=== PATIENT | female | born 1960 | race Caucasian/White ===

== ENCOUNTER 2017-05-14 20:35 | Emergency (ER) | payer BC | END 2017-05-14 21:35 | disposition left against medical advice (07) | LOC: ERS 20:35 | DX: Z53.21 Procedure and treatment not carried out due to patient leaving prior to being seen by health care provider (principal) ==

== ENCOUNTER 2019-06-29 15:10 | Outpatient (CLI) | payer OTHER ==
--- NOTE | 2019-06-29 15:36 | RAD ---
LUMBAR SPINE SERIES TWO VIEWS: 06/29/19 HISTORY: Intermittent low back pain. COMPARISON: A 03/03/07 study. Vertebral bodies are normal in height. There has been progression of degenerative change with increas ed sclerosis along the superior end plate of L3. Some very mild disc narrowing at this level. More pr onounced disc narrowing and vacuum disc phenomenon at L5-S1. Degenerative facet changes are also pres ent. IMPRESSION: Arthritic changes of the spine. POS: [facility]
== END 2019-06-29 15:11 | disposition home or self-care (01) ==
LOC: BICRAD 15:10
PROVIDERS: ATTEND Internal Medicine
DX: Z02.71 Encounter for disability determination (principal)
CPT/HCPCS: 72100

== ENCOUNTER 2020-04-28 19:01 | Emergency (ER) | payer BC, SELFPAY ==
[2020-04-28 19:51] LABS: Bilirubin Negative (Negative); Blood, Urine Negative (Negative); Clarity Clear (Clear); Glucose, Urine (Dipstick) Greater than 1000 mg/dL (Negative); Ketone, Urine Negative (Negative); Leukocyte Negative Leu/uL (Negative); Nitrite Negative (Negative); Protein, Urine (Dipstick) Negative (Neg-Trace); Specific Gravity, Urine 1.035 (1.002-1.036); Urobilinogen Normal mg/dL (Less than 2)
[2020-04-28] MEDS ORDERED: Insulin Regular 300 UNITS/3 ML VIAL ONE (20:03)
[2020-04-28 20:29] LABS: #Eosinphils 0.1 thou/uL (0.0-0.7); #Lymphocytes 2.2 thou/uL (1.20-3.40); #Monocytes 0.3 thou/uL (0.11-0.59); #Neutrophils 3.4 thou/uL (1.40-6.50); %Basophils 0.5 % (0.0-1.0); %Eosinophils 1.9 % (0.0-10.0); %Neutrophils 56.7 % (42.0-75.0); Hemoglobin 15.1 g/dL (12.0-16.0); Mean Corpuscular Hemoglobin 30.1 pg (27.0-31.0); Mean Corpuscular Volume 86.2 fL (78.0-98.0); Mean Platelet Volume 8.5 fL (7.4-10.4); Platelet Count 166 thou/uL (130-400); RBC Distribution Width 12.3 % (11.5-14.5); Red Blood Cell (RBC) Count 5.02 mill/uL (4.20-5.40)
[2020-04-28 20:50] LABS: ALT (SGPT) 26 U/L (8-55); AST (SGOT) 36 U/L (5-34); Albumin 4.3 g/dL (3.4-4.8); Alkaline Phosphatase 99 U/L (40-110); Anion Gap 15 mmol/L (10-20); BUN (Urea Nitrogen) 18 mg/dL (9.8-20.1); Calc. Creatinine Clearance 0 mL/min (70-130); Calcium 9.5 mg/dL (7.8-10.44); Carbon Dioxide 24 mmol/L (23-31); Chloride 95 mmol/L (98-107); Estimated GFR-MDRD 49; Globulin 2.3 g/dL (2.4-3.5); Glucose 469 mg/dL (80-115); Potassium 3.9 mmol/L (3.5-5.1); Protein, Total 6.6 g/dL (6.0-8.3); Sodium 130 mmol/L (136-145)
== END 2020-04-28 21:19 | disposition home or self-care (01) ==
LOC: ERS 19:01
DX: E11.65 Type 2 diabetes mellitus with hyperglycemia (principal); E78.5 Hyperlipidemia, unspecified; I10 Essential (primary) hypertension; Z79.4 Long term (current) use of insulin
CPT/HCPCS: 36415; 36416; 80053; 81003; 82010; 85025; 96360; J1815

== ENCOUNTER 2020-06-10 00:10 | Emergency (ER) | payer SELFPAY ==
[2020-06-10] MEDS ORDERED: Ketorolac Tromethamine 30 MG/ML VIAL ONE (00:43)
== END 2020-06-10 01:17 | disposition home or self-care (01) ==
LOC: ERS 00:10
DX: M54.32 Sciatica, left side (principal); E11.9 Type 2 diabetes mellitus without complications; E78.5 Hyperlipidemia, unspecified; I10 Essential (primary) hypertension; Z79.4 Long term (current) use of insulin; Z79.899 Other long term (current) drug therapy
CPT/HCPCS: 96372; 99283; J1885

== ENCOUNTER 2020-07-09 06:38 | Emergency (ER) | payer SELFPAY ==
[2020-07-09 08:01] LABS: #Eosinphils 0.1 thou/uL (0.0-0.7); #Lymphocytes 1.2 thou/uL (1.20-3.40); #Monocytes 0.3 thou/uL (0.11-0.59); #Neutrophils 3.1 thou/uL (1.40-6.50); %Basophils 0.7 % (0.0-1.0); %Eosinophils 2.3 % (0.0-10.0); Hemoglobin 14.7 g/dL (12.0-16.0); Mean Corpuscular HGB CONC 35.5 g/dL (32.0-36.0); Mean Corpuscular Volume 87.2 fL (78.0-98.0); Platelet Count 153 thou/uL (130-400); RBC Distribution Width 12.6 % (11.5-14.5); Red Blood Cell (RBC) Count 4.74 mill/uL (4.20-5.40); White Blood Cell (WBC) Count 4.7 thou/uL (4.8-10.8)
[2020-07-09 08:25] LABS: ALT (SGPT) 25 U/L (8-55); AST (SGOT) 37 U/L (5-34); Albumin 4.3 g/dL (3.4-4.8); Alkaline Phosphatase 90 U/L (40-110); Anion Gap 16 mmol/L (10-20); BUN (Urea Nitrogen) 11 mg/dL (9.8-20.1); Bilirubin, Total 0.9 mg/dL (0.2-1.2); Calc. Creatinine Clearance 0 mL/min (70-130); Calcium 9.2 mg/dL (7.8-10.44); Carbon Dioxide 25 mmol/L (23-31); Chloride 100 mmol/L (98-107); Estimated GFR-MDRD 55; Globulin 2.4 g/dL (2.4-3.5); Glucose 475 mg/dL (80-115); Lipase 74 U/L (8-78); Protein, Total 6.7 g/dL (6.0-8.3); Sodium 137 mmol/L (136-145)
[2020-07-09 08:26] LABS: Bilirubin Negative (Negative); Blood, Urine Negative (Negative); Clarity Clear (Clear); Glucose, Urine (Dipstick) Greater than 1000 mg/dL (Negative); Ketone, Urine Negative (Negative); Leukocyte Negative Leu/uL (Negative); Nitrite Negative (Negative); Protein, Urine (Dipstick) Negative (Neg-Trace); Specific Gravity, Urine 1.029 (1.002-1.036); Urobilinogen Normal mg/dL (Less than 2); pH, Urine 6.5 (5.0-9.0)
--- NOTE | 2020-07-09 09:10 | CT ---
CT Abdomen Pelvis W Con History: Abdominal pain Comparison: None. Findings: Lung bases are clear. No pericardial effusion. Prior cholecystectomy. The spleen, pancreas, adrenal glands are unremarkable. No hydroureteronephrosi s. No abnormal renal enhancing mass. Minimal fluid along the left paracolic gutter. Likely left ovarian remnant slightly enlarged measurin g up to 2.5 cm with small volume adjacent fluid. No dilated loops of large or small bowel. No free intraperitoneal gas. No retroperitoneal periaortic adenopathy. No acute osseous abnormality. 2 mm L2-3 retrolisthesis. Impression: 1. Trace left paracolic gutter fluid tracking to the left ovarian remnant which is slightly large for age measuring up to 2.5 cm in size. Nonemergent pelvic ultrasound evaluation recommended. This could also be sequelae of a recent bout of colitis although there is no evidence of acute colitis on today's exam. 2. No hydronephrosis or perinephric stranding. No renal calculi. 3. No other acute inflammatory process within the abdomen or pelvis. 4. Normal appendix.
[2020-07-09] MEDS ORDERED: Ketorolac Tromethamine 30 MG/ML VIAL ONE (09:44)
[2020-07-09] MEDS ORDERED: Acetaminophen 500 MG TAB ONE ×2 (09:44→09:45)
[2020-07-09] MEDS ORDERED: Iopamidol-370 76% 500 ML 1 ML ONE (12:52)
== END 2020-07-09 10:47 | disposition home or self-care (01) ==
LOC: ERS 06:38
DX: N83.8 Other noninflammatory disorders of ovary, fallopian tube and broad ligament (principal); E11.65 Type 2 diabetes mellitus with hyperglycemia; E78.5 Hyperlipidemia, unspecified; I10 Essential (primary) hypertension; F32.9 Major depressive disorder, single episode, unspecified; Z79.4 Long term (current) use of insulin; Z79.899 Other long term (current) drug therapy
CPT/HCPCS: 74177; 80053; 81003; 83690; 84484; 85025; 93005; 96374; J1885; Q9967

== ENCOUNTER 2021-10-13 11:08 | Outpatient (CLI) | payer MEDICARE | END 2021-10-13 11:09 | disposition home or self-care (01) | LOC: BICMAMMO 11:08 | PROVIDERS: ATTEND Family Medicine | DX: Z12.31 Encounter for screening mammogram for malignant neoplasm of breast (principal); Z80.3 Family history of malignant neoplasm of breast | CPT/HCPCS: 77063; 77067 ==

== ENCOUNTER 2022-01-02 07:55 | Outpatient (CLI) | payer MEDICARE ==
[2022-01-02 10:07] LABS: Anion Gap 18 mmol/L (10-20); BUN (Urea Nitrogen) 10 mg/dL (9.8-20.1); Calc. Creatinine Clearance 0 mL/min (70-130); Calcium 9.2 mg/dL (7.8-10.44); Carbon Dioxide 25 mmol/L (23-31); Chloride 105 mmol/L (98-107); Glucose 186 mg/dL (80-115); Potassium 4.1 mmol/L (3.5-5.1); Sodium 144 mmol/L (136-145)
[2022-01-02 18:25] LABS: SARS-CoV-2 PCR by NAA Not Detected (NotDetected)
== END 2022-01-02 07:56 | disposition home or self-care (01) ==
LOC: LABBT 07:55
PROVIDERS: ATTEND Otolaryngology Plastic Surgery within the Head & Neck
DX: Z01.818 Encounter for other preprocedural examination (principal); H61.90 Disorder of external ear, unspecified, unspecified ear; L81.9 Disorder of pigmentation, unspecified; Z20.822 Contact with and (suspected) exposure to COVID-19
CPT/HCPCS: 80048; 85014; 93005; U0003; U0005; 93010

== ENCOUNTER 2022-01-07 08:08 | Day surgery (SDC) | payer MEDICARE ==
[2022-01-05 12:26] VITALS: BMI 25.4
[2022-01-07] MEDS ORDERED: Lidocaine 1% w/Epinephrine 1:100K 20 ML VIAL ONE (10:21)
[2022-01-07] MEDS ORDERED: fentaNYL Citrate/PF 100 MCG/2 ML SYRINGE ONE ×2 (10:28→11:58)
[2022-01-07] MEDS ORDERED: Ondansetron PF 4 MG/2 ML Vial ONE (10:56)
[2022-01-07] MEDS ORDERED: PROPOFOL 200 MG/20 ML VIAL ONE (10:56)
[2022-01-07] MEDS ORDERED: Dexamethasone 20 MG/5 ML VIAL ONE (10:56)
[2022-01-07] MEDS ORDERED: PHENYLEPHRINE-NS 100 MCG/ML 10 ML SYRINGE ONE (10:56)
[2022-01-07] MEDS ORDERED: Bacitracin Zinc Ointment 30 gm TUBE ONE (11:19)
== END 2022-01-07 13:20 | disposition home or self-care (01) ==
LOC: SDC 08:08
PROVIDERS: ATTEND Otolaryngology Plastic Surgery within the Head & Neck
PROC: 0HB4XZZ Excision of Neck Skin, External Approach (ICD-10-PCS; principal; 2022-01-07)
DX: C44.41 Basal cell carcinoma of skin of scalp and neck (principal); L57.8 Other skin changes due to chronic exposure to nonionizing radiation; I10 Essential (primary) hypertension; E78.00 Pure hypercholesterolemia, unspecified; K21.9 Gastro-esophageal reflux disease without esophagitis; Z79.4 Long term (current) use of insulin; Z79.82 Long term (current) use of aspirin; Z79.84 Long term (current) use of oral hypoglycemic drugs; Z79.899 Other long term (current) drug therapy; Z88.0 Allergy status to penicillin
CPT/HCPCS: 88305; 88331; J1100; J2405; J2704

== ENCOUNTER 2022-02-19 13:26 | Emergency (ER) | payer MEDICARE | END 2022-02-19 14:48 | disposition left against medical advice (07) | LOC: ERS 13:26 | DX: Z53.21 Procedure and treatment not carried out due to patient leaving prior to being seen by health care provider (principal) | CPT/HCPCS: 36416; 93005 ==

== ENCOUNTER 2022-05-13 07:03 | Emergency (ER) | payer MEDICARE ==
[2022-05-13] MEDS ORDERED: Morphine 4 MG/ML VIAL ONE ×2 (09:55)
[2022-05-13] MEDS ORDERED: Ketorolac Tromethamine 30 MG/ML VIAL ONE (09:55)
[2022-05-13] MEDS ORDERED: Acetaminophen 500 MG TAB ONE (09:55)
== END 2022-05-13 10:50 | disposition home or self-care (01) ==
LOC: ERS 07:03
DX: M54.41 Lumbago with sciatica, right side (principal); I10 Essential (primary) hypertension; E11.9 Type 2 diabetes mellitus without complications; Z79.84 Long term (current) use of oral hypoglycemic drugs; Z79.899 Other long term (current) drug therapy
CPT/HCPCS: 96372; 99283; J1885; J2270

== ENCOUNTER 2022-05-19 07:54 | Outpatient (CLI) | payer MEDICARE | END 2022-05-19 07:55 | disposition home or self-care (01) | LOC: RAD 07:54 | PROVIDERS: ATTEND Family Medicine | DX: M51.16 Intervertebral disc disorders with radiculopathy, lumbar region (principal) | CPT/HCPCS: 72100 ==

== ENCOUNTER 2022-05-28 09:13 | Outpatient (CLI) | payer MEDICARE | END 2022-05-28 09:14 | disposition home or self-care (01) | LOC: MRI 09:13 | PROVIDERS: ATTEND Family Medicine | DX: M54.50 Low back pain, unspecified (principal); M51.36 Other intervertebral disc degeneration, lumbar region; M51.37 Other intervertebral disc degeneration, lumbosacral region; M47.816 Spondylosis without myelopathy or radiculopathy, lumbar region; M24.28 Disorder of ligament, vertebrae; M51.26 Other intervertebral disc displacement, lumbar region; M48.061 Spinal stenosis, lumbar region without neurogenic claudication; M47.817 Spondylosis without myelopathy or radiculopathy, lumbosacral region; M48.07 Spinal stenosis, lumbosacral region | CPT/HCPCS: 72148; 72158 ==

== ENCOUNTER 2022-08-18 14:53 | Outpatient (CLI) | payer MEDICARE | END 2022-08-18 14:54 | disposition home or self-care (01) | LOC: BICMAMMO 14:53 | PROVIDERS: ATTEND Family Medicine | DX: Z13.820 Encounter for screening for osteoporosis (principal); M54.50 Low back pain, unspecified; M79.606 Pain in leg, unspecified; M85.89 Other specified disorders of bone density and structure, multiple sites; Z79.4 Long term (current) use of insulin; Z91.89 Other specified personal risk factors, not elsewhere classified | CPT/HCPCS: 77080 ==

== ENCOUNTER 2022-08-21 16:22 | Emergency (ER) | payer MEDICARE ==
[~2022-08-21 16:22] MED LIST: Iopamidol-370 76% 500 ML 1 ML ONE
[2022-08-21 17:05] LABS: #Eosinphils 0.1 thou/uL (0.0-0.7); #Monocytes 0.4 thou/uL (0.11-0.59); #Neutrophils 4.1 thou/uL (1.40-6.50); %Basophils 0.4 % (0.0-1.0); %Lymphocytes 30.4 % (21.0-51.0); %Monocytes 5.3 % (0.0-10.0); %Neutrophils 61.8 % (42.0-75.0); Hemoglobin 15.4 g/dL (12.0-16.0); Mean Corpuscular HGB CONC 35.3 g/dL (32.0-36.0); Mean Corpuscular Hemoglobin 30.2 pg (27.0-31.0); Mean Corpuscular Volume 85.5 fl (78.0-98.0); Platelet Count 183 10x3/uL (130-400); RBC Distribution Width 12.8 % (11.5-14.5); Red Blood Cell (RBC) Count 5.11 mill/uL (4.20-5.40); White Blood Cell (WBC) Count 6.6 10x3/uL (4.8-10.8)
[2022-08-21 17:31] LABS: ALT (SGPT) 25 U/L (8-55); AST (SGOT) 39 U/L (5-34); Albumin 4.6 g/dL (3.4-4.8); Alkaline Phosphatase 120 U/L (40-110); Anion Gap 12 mmol/L (10-20); BUN (Urea Nitrogen) 10 mg/dL (9.8-20.1); Bilirubin, Total 0.8 mg/dL (0.2-1.2); Calc. Creatinine Clearance 0 mL/min (70-130); Calcium 9.8 mg/dL (7.8-10.44); Carbon Dioxide 26 mmol/L (23-31); Chloride 103 mmol/L (98-107); Estimated GFR 87; Globulin 2.2 g/dL (2.4-3.5); Glucose 160 mg/dL (80-115); Potassium 4.2 mmol/L (3.5-5.1); Protein, Total 6.8 g/dL (5.8-8.1); Sodium 137 mmol/L (136-145)
[2022-08-21] MEDS ORDERED: hydrALAZINE 20 MG/ML VIAL ONE (19:11)
[2022-08-21] MEDS ORDERED: diphenhydrAMINE 50 MG/ML VIAL ONE (19:48)
[2022-08-21] MEDS ORDERED: Metoclopramide HCl 10 MG/2 ML VIAL ONE (19:48)
[2022-08-21] MEDS ORDERED: Ketorolac Tromethamine 30 MG/ML VIAL ONE (19:48)
[2022-08-21 20:35] LABS: Bilirubin Negative (Negative); Blood, Urine Negative (Negative); Clarity Clear (Clear); Glucose, Urine (Dipstick) Normal (Negative); Ketone, Urine Negative (Negative); Leukocyte Negative Leu/uL (Negative); Nitrite Negative (Negative); Protein, Urine (Dipstick) Negative (Neg-Trace); Specific Gravity, Urine 1.025 (1.002-1.036); Urobilinogen Normal mg/dL (Less than 2)
== END 2022-08-21 20:40 | disposition home or self-care (01) ==
LOC: ERS 16:22
DX: R51.9 Headache, unspecified (principal); R10.13 Epigastric pain; I10 Essential (primary) hypertension; E11.9 Type 2 diabetes mellitus without complications
CPT/HCPCS: 36415; 71045; 74177; 80053; 81003; 83605; 83690; 84484; 85025; 93005; 96374; 96375; J0360; J1200; J1885; J2765; Q9967

== ENCOUNTER 2024-09-19 11:49 | Emergency (ER) | payer MEDICARE ==
[2024-09-19 13:13] LABS: #Basophils 0.05 10x3/uL (0.0-0.2); %Basophils 0.7 % (0.0-1.0); %Eosinophils 1.5 % (0.0-10.0); %Lymphocytes 24.6 % (21.0-51.0); %Monocytes 4.5 % (0.0-10.0); %Neutrophils 68.3 % (42.0-75.0); Hematocrit 38.4 % (36.0-47.0); Hemoglobin 13.9 g/dL (12.0-16.0); Mean Corpuscular HGB CONC 36.2 g/dL (32.0-36.0); Mean Corpuscular Hemoglobin 29.4 pg (27.0-31.0); Mean Corpuscular Volume 81.2 fL (78.0-98.0); Mean Platelet Volume 10.2 fL (7.4-10.4); Platelet Count 166 10x3/uL (130-400); RBC Distribution Width 13.3 % (11.5-14.5); Red Blood Cell (RBC) Count 4.73 mill/uL (4.20-5.40)
[2024-09-19] MEDS ORDERED: Ketorolac Tromethamine 30 MG (1 mL) VIAL ONE (13:16)
[2024-09-19] MEDS ORDERED: hydrALAZINE 20 MG/ML VIAL ONE (13:16)
[2024-09-19] MEDS ORDERED: Metoclopramide HCl 10 MG (2 mL) VIAL ONE (13:16)
[2024-09-19 13:36] LABS: ALT (SGPT) 23 U/L (Less than 34); AST (SGOT) 48 U/L (11-34); Alkaline Phosphatase 108 U/L (40-110); Anion Gap 13 mmol/L (10-20); BUN (Urea Nitrogen) 10 mg/dL (9.8-20.1); Calc. Creatinine Clearance 0 mL/min (70-130); Carbon Dioxide 25 mmol/L (23-31); Chloride 105 mmol/L (98-107); Estimated GFR 88; Globulin 2.5 g/dL (2.4-3.5); Glucose 210 mg/dL (80-115); Potassium 3.9 mmol/L (3.5-5.1); Protein, Total 6.5 g/dL (5.8-8.1); Sodium 139 mmol/L (136-145)
[2024-09-19 13:42] LABS: Troponin I Less than 0.010 ng/mL (< 0.028)
[2024-09-19] MEDS ORDERED: Acetaminophen 500 MG TAB ONE (15:01)
[2024-09-19] MEDS ORDERED: Cyclobenzaprine 10 MG TAB ONE (15:02)
== END 2024-09-19 15:33 | disposition home or self-care (01) ==
LOC: ERS 11:49
DX: I10 Essential (primary) hypertension (principal); R10.9 Unspecified abdominal pain; E11.9 Type 2 diabetes mellitus without complications
CPT/HCPCS: 71045; 80053; 83880; 84484; 85025; 93005; J0360; J1885; J2765; 96374; 96375